=== PATIENT | female | born 1985 | race Caucasian/White ===

== ENCOUNTER 2019-07-17 08:57 | Emergency (ER) | payer OTHER ==
[~2019-07-17] VITALS: Ht 157.5 cm; Wt 82.0 kg
[2019-07-17] MEDS ORDERED: PREDNISONE 20MG TABLET PO STA (09:10)
[2019-07-17] MEDS ORDERED: ALBUTEROL (0.083%) 2.5MG/3ML NEB HHN STA (09:10)
[2019-07-17] MEDS ORDERED: IPRATROPIUM BROMIDE (0.02%) 0.5MG/2.5ML NEB HHN STA (09:10)
[2019-07-17] MEDS ORDERED: IPRATROPIUM/ALBUTEROL 0.5-3(2.5)MG/3ML NEB HHN ONE (09:30)
[2019-07-17] MEDS ORDERED: DEXAMETHASONE 4MG TABLET PO ONE (09:30)
[2019-07-17] MEDS ORDERED: IPRATROPIUM BROMIDE (0.02%) 0.5MG/2.5ML NEB ONE (09:47)
[2019-07-17] MEDS ORDERED: ALBUTEROL (0.083%) 2.5MG/3ML NEB ONE (09:47)
[2019-07-17 10:34] VITALS: BP 113/56
== END 2019-07-17 11:00 | disposition home or self-care (01) ==
LOC: ER 09:19
DX: R06.02 Shortness of breath (principal)
CPT/HCPCS: 81025; 94644; 99285; J8540; Z7610